=== PATIENT | male | born 1980 | race Caucasian/White ===

== ENCOUNTER 2018-02-05 18:46 | Emergency (ER) | payer OTHER ==
[2018-02-05 18:54] VITALS: BP 144/89
--- NOTE | 2018-02-05 18:56 | ER Report ---
History and Physical Time Seen By MD: 18:55 HPI/ROS CHIEF COMPLAINT: foot pain and swelling HISTORY OF PRESENT ILLNESS: This is a 37 year old male. He has pain in the right foot. No injury or overuse. Started today. Pain is in the anterior dorsal foot, below the ankle. Mild swelling there. More pain with weight bearing. No history of pain like this in the past. No history of gout or other inflammatory conditions. Allergies: Coded Allergies: Penicillins (Verified Allergy, Unknown, 02/05/18) Home Meds Active Scripts Indomethacin (INDOMETHACIN) 25 Mg Capsule, 25 MG PO DIRECTED, #27 CAPSULE 0 Refills Take 2 tablets 3 times a day for 3 days, then decrease to 1 tablet 3 times a day for 3 days, then stop. Take with food. Prov:JOSEPH DIAL MD 02/05/18 Reported Medications Hydrochlorothiazide (HYDROCHLOROTHIAZIDE) 25 Mg Tablet, 1 TAB PO QDAY, TAB 02/05/18 Escitalopram Oxalate (ESCITALOPRAM OXALATE) 10 Mg Tablet, 10 MG PO QDAY, TAB 02/05/18 Atorvastatin Calcium (LIPITOR) 10 Mg Tablet, 5 TAB PO QDAY, TAB 02/05/18 Naproxen Sodium (ALEVE) 220 Mg Tablet, 800 MG PO TID, TAB 02/05/18 Reviewed Nurses Notes: Yes Constitutional Vital Sign - Last 24 Hours 02/05/18 18:54 Temp 98.3 Pulse 83 Resp 19 B/P (MAP) 144/89 Pulse Ox 93 O2 Delivery Room Air Physical Exam General appearance: Patient is alert. No acute distress. Musculoskeletal: Right ankle shows mild swelling dorsal foot. There is no obvious deformity. No bruising. Medial malleolus is non-tender. Lateral malleolus is non-tender. Head of the fifth metatarsal is nontender. Some tenderness with squeeze of the forefoot. No tenderness with squeeze of the lower leg. No pain in calcaneus, arch or Achilles area. Neurologic: The patient has normal sensation. Active range of motion is intact, but with pain. Cardiovascular: Normal dorsalis pedis and posterior tibialis pulses. Normal capillary refill. Skin: No rash. No skin breakdown. DIFFERENTIAL DIAGNOSIS: After history and physical exam differential diagnosis was considered for foot pain including inflammatory condition such as gout, overuse and soft tissue injury. Medical Decision Making Data Points Result Diagram: 02/05/18191402/05/181914 Laboratory Hematology Test 02/05/18 19:15 Red Blood Count 5.52 M/uL (4.00-5.60) Mean Corpuscular Volume 82.3 fL (80.0-96.0) Mean Corpuscular Hemoglobin 28.8 pg (26.0-33.0) Mean Corpuscular Hemoglobin Concent 35.0 g/dL (32.0-36.0) Red Cell Distribution Width 14.3 % (11.5-14.5) Mean Platelet Volume 10.3 fL (7.2-11.1) Neutrophils (%) (Auto) 74.7 % (39.4-72.5) Lymphocytes (%) (Auto) 19.0 % (17.6-49.6) Monocytes (%) (Auto) 5.3 % (4.1-12.4) Eosinophils (%) (Auto) 0.5 % (0.4-6.7) Basophils (%) (Auto) 0.5 % (0.3-1.4) Nucleated RBC Relative Count (auto) 0.1 /100WBC Neutrophils # (Auto) 10.2 K/uL (2.0-7.4) Lymphocytes # (Auto) 2.6 K/uL (1.3-3.6) Monocytes # (Auto) 0.7 K/uL (0.3-1.0) Eosinophils # (Auto) 0.1 K/uL (0.0-0.5) Basophils # (Auto) 0.1 K/uL (0.0-0.1) Nucleated RBC Absolute Count (auto) 0.02 K/uL Erythrocyte Sedimentation Rate 8 mm/HOUR (0-15) Sodium Level 139 mmol/L (137-145) Potassium Level 3.9 mmol/L (3.5-5.0) Chloride Level 102 mmol/L (98-107) Carbon Dioxide Level 21 mmol/L (22-30) Blood Urea Nitrogen 16 mg/dl (9-21) Creatinine 0.90 mg/dl (0.66-1.25) Glomerular Filtration Rate Calc > 60.0 Random Glucose 110 mg/dl (75-110) Uric Acid 7.8 mg/dl (3.5-8.5) Calcium Level 9.3 mg/dl (8.4-10.2) Total Bilirubin 0.5 mg/dl (0.2-1.3) Aspartate Amino Transf (AST/SGOT) 21 U/L (0-35) Alanine Aminotransferase (ALT/SGPT) 24 U/L (0-56) Alkaline Phosphatase 69 U/L (0-126) C-Reactive Protein 1.0 mg/dl (<1.0) Total Protein 7.0 gm/dl (6.3-8.2) Albumin 4.0 g/dl (3.5-5.0) Chemistry Test 02/05/18 19:15 White Blood Count 13.6 k/uL (4.5-11.0) Red Blood Count 5.52 M/uL (4.00-5.60) Hemoglobin 15.9 g/dL (14.0-18.0) Hematocrit 45.5 % (42.0-52.0) Mean Corpuscular Volume 82.3 fL (80.0-96.0) Mean Corpuscular Hemoglobin 28.8 pg (26.0-33.0) Mean Corpuscular Hemoglobin Concent 35.0 g/dL (32.0-36.0) Red Cell Distribution Width 14.3 % (11.5-14.5) Platelet Count 137 K/uL (150-450) Mean Platelet Volume 10.3 fL (7.2-11.1) Neutrophils (%) (Auto) 74.7 % (39.4-72.5) Lymphocytes (%) (Auto) 19.0 % (17.6-49.6) Monocytes (%) (Auto) 5.3 % (4.1-12.4) Eosinophils (%) (Auto) 0.5 % (0.4-6.7) Basophils (%) (Auto) 0.5 % (0.3-1.4) Nucleated RBC Relative Count (auto) 0.1 /100WBC Neutrophils # (Auto) 10.2 K/uL (2.0-7.4) Lymphocytes # (Auto) 2.6 K/uL (1.3-3.6) Monocytes # (Auto) 0.7 K/uL (0.3-1.0) Eosinophils # (Auto) 0.1 K/uL (0.0-0.5) Basophils # (Auto) 0.1 K/uL (0.0-0.1) Nucleated RBC Absolute Count (auto) 0.02 K/uL Erythrocyte Sedimentation Rate 8 mm/HOUR (0-15) Glomerular Filtration Rate Calc > 60.0 Uric Acid 7.8 mg/dl (3.5-8.5) Calcium Level 9.3 mg/dl (8.4-10.2) Total Bilirubin 0.5 mg/dl (0.2-1.3) Aspartate Amino Transf (AST/SGOT) 21 U/L (0-35) Alanine Aminotransferase (ALT/SGPT) 24 U/L (0-56) Alkaline Phosphatase 69 U/L (0-126) C-Reactive Protein 1.0 mg/dl (<1.0) Total Protein 7.0 gm/dl (6.3-8.2) Albumin 4.0 g/dl (3.5-5.0) EKG/Imaging Imaging Examination: FOOT 3 VIEW RIGHT Comparison: None. History: anterior ankle/foot pain Findings: No fracture. Alignment and joint spaces are within normal limits. Tiny plantar calcaneal spur. Soft tissues are unremarkable. IMPRESSION: No right foot fracture or malalignment. Report Dictated By: Ant Brito MD at 02/05/2018 7:53 PM ED Course/Re-evaluation ED Course Labs negative. Imaging with nothing acute. This appears to be inflammatory in nature, but unsure of exact cause. Conservative management with indomethacin as anti-inflammatory and follow-up with orthopedic surgery if not improving. Decision to Disposition Date: Feb 05, 2018 Decision to Disposition Time: 20:06 Depart Departure Latest Vital Signs Vital Signs Date Time Temp Pulse Resp B/P (MAP) Pulse Ox O2 Delivery O2 Flow Rate FiO2 02/05/18 18:54 98.3 83 19 144/89 93 Room Air Impression: Primary Impression: Foot pain, right Condition: Improved Disposition: HOME OR SELF-CARE New Scripts Indomethacin (INDOMETHACIN) 25 Mg Capsule 25 MG PO DIRECTED, #27 CAPSULE 0 Refills Take 2 tablets 3 times a day for 3 days, then decrease to 1 tablet 3 times a day for 3 days, then stop. Take with food. Prov: JOSEPH DIAL MD 02/05/18 Patient Instructions: Gout (ED) Additional Instructions: We are not sure of the exact cause of your foot pain. It appears likely to be an inflammatory condition, but uncertain which. We would like to have you use crutches and slowly increase the amount of weight you are putting on your foot as the pain improves. We would like to have you use the anti-inflammatory Indomethacin. Indomethacin 25mg. Take 2 tablets 3 times a day for 3 days, then decrease to 1 tablet 3 times a day for 3 days, then stop. Take this medicine with food. If not starting to see improvement in the next 2 days, please make an appointment with orthopedic surgery for further evaluation. JOSEPH DIAL MD Feb 05, 2018 18:56
[2018-02-05] MEDS ORDERED: ATOR10TA24 PO (19:09)
[2018-02-05] MEDS ORDERED: HYDR-2966 PO (19:09)
[2018-02-05] MEDS ORDERED: NAPR-1043 PO (19:09)
[2018-02-05] MEDS ORDERED: ESCI10TA8 PO (19:09)
[2018-02-05 19:34] LABS: PLATELET COUNT, AUTOMATED 137 K/uL (150-450)
--- NOTE | 2018-02-05 19:58 | RADIOLOGY IMAGING REPORT ---
FACILITY: [facility] - [place] PATIENT NAME: Keegan Christian : 1980 MR: [id number] V: [id number] EXAM DATE: ORDERING PHYSICIAN: JOSEPH DIAL TECHNOLOGIST: Location: [facility] Patient: Keegan Christian : 1980 Visit/Account:[id number] Date of Sevice: 02/05/2018 Examination: FOOT 3 VIEW RIGHT Comparison: None. History: anterior ankle/foot pain Findings: No fracture. Alignment and joint spaces are within normal limits. Tiny plantar calcaneal sp ur. Soft tissues are unremarkable. IMPRESSION: No right foot fracture or malalignment. Report Dictated By: Ant Brito MD at 02/05/2018 7:53 PM Report E-Signed By: Ant Brito MD at 02/05/2018 7:55 PM WSN:[id number]
[2018-02-05] MEDS ORDERED: INDOMETHACIN 25 MG CAP PO ONE (20:10)
[2018-02-05] MEDS ORDERED: INDO-1 PO (20:10)
== END 2018-02-05 20:22 | disposition home or self-care (01) ==
LOC: ER 19:03
DX: M79.671 Pain in right foot (principal)
CPT/HCPCS: 36415; 82040; 82247; 82310; 82374; 82435; 82565; 82947; 84075; 84132; 84155; 84295; 84450; 84460; 84520; 84550; 85025; 85651; 86140; 99283

== ENCOUNTER 2019-02-14 08:01 | Emergency (ER) | payer OTHER ==
[~2019-02-14 08:01] MED LIST: ATOR10TA24 PO; ESCI10TA8 PO; HYDR-2966 PO; INDO-21 PO; NAPR-1043 PO
--- NOTE | 2019-02-14 08:08 | ER Report ---
History and Physical Time Seen By MD: 08:02 HPI/ROS CHIEF COMPLAINT: Right knee pain HISTORY OF PRESENT ILLNESS: Patient with atraumatic right knee pain. States that at work yesterday he noticed a tenderness to the lateral upper aspect of the knee as if he was struck with something. He however denies trauma. He has painful weightbearing and painful flexion of the knee. No fevers or chills. Patient reports a prior history of multiple knee surgeries to the left knee. REVIEW OF SYSTEMS: Musculoskeletal: Right knee pain Allergies: Coded Allergies: Penicillins (Verified Allergy, Unknown, 02/14/19) Home Meds Active Scripts Oxycodone Hcl/Acetaminophen (PERCOCET 5-325 MG TABLET) 1 Each Tablet, 1 EACH PO Q4H, #20 TAB 0 Refills Prov:SANDY FLOYD MD 02/14/19 Reported Medications Hydrochlorothiazide (HYDROCHLOROTHIAZIDE) 25 Mg Tablet, 1 TAB PO QDAY, TAB 02/05/18 Escitalopram Oxalate (ESCITALOPRAM OXALATE) 10 Mg Tablet, 10 MG PO QDAY, TAB 02/05/18 Atorvastatin Calcium (LIPITOR) 10 Mg Tablet, 5 TAB PO QDAY, TAB 02/05/18 Naproxen Sodium (ALEVE) 220 Mg Tablet, 800 MG PO TID, TAB 02/05/18 Discontinued Scripts Indomethacin (INDOMETHACIN) 25 Mg Capsule, 25 MG PO DIRECTED, #27 CAPSULE 0 Refills Take 2 tablets 3 times a day for 3 days, then decrease to 1 tablet 3 times a day for 3 days, then stop. Take with food. Prov:JOSEPH DIAL MD 02/05/18 Past Medical/Surgical History History of left knee surgeries Hx Substance Use Disorder: No Hx Alcohol Use: No Constitutional Vital Sign - Last 24 Hours 02/14/19 02/14/19 02/14/19 02/14/19 08:05 08:05 08:30 08:31 Temp 98.7 Pulse 93 91 Resp 20 B/P (MAP) 153/103 (120) 153/103 143/79 (100) Pulse Ox 93 O2 Delivery Room Air 02/14/19 02/14/19 09:00 09:01 Pulse 89 B/P (MAP) 134/75 (94) Pulse Ox 92 Physical Exam General appearance: Alert no distress. Right knee: There is no significant swelling. There is no effusion. There is no obvious deformity of the knee. There is moderate tenderness to the the superior pole of the the knee joint proper on the lateral aspect The joint is stable with no comparable ligamentous laxity to the knee. There is no tenderness proximal or distal to the knee. Neurologic exam: The patient has normal sensation distal to the injury. Vascular exam: Normal pulses and capillary refill in the foot [ ] DIFFERENTIAL DIAGNOSIS: After history and physical exam differential diagnosis was considered for knee injury including sprain, fracture, meniscus injury and soft tissue injury. Medical Decision Making ED Course/Re-evaluation ED Course Plan at this time will be oral pain medication and x-ray of the right knee. Decision to Disposition Date: February 14, 2019 Decision to Disposition Time: 08:59 Depart Departure Latest Vital Signs Vital Signs Date Time Temp Pulse Resp B/P (MAP) Pulse Ox O2 Delivery O2 Flow Rate FiO2 02/14/19 09:01 89 92 02/14/19 09:00 134/75 (94) 02/14/19 08:05 98.7 20 Room Air Impression: Primary Impression: Knee strain Condition: Improved Disposition: HOME OR SELF-CARE Referrals: [facility] 1 Week if knee pain persists New Scripts Oxycodone Hcl/Acetaminophen (PERCOCET 5-325 MG TABLET) 1 Each Tablet 1 EACH PO Q4H, #20 TAB 0 Refills Prov: SANDY FLOYD MD 02/14/19 Departure Forms: ER Transition Record, Medications Reconciliation, Off Work/School Form, School or Work Release?: Work Number of days to be released: 2 Patient Portal Information Patient Instructions: Knee Exercises (GEN), Knee Immobilizer (DC), Knee Pain (ED) Problem Qualifiers Primary Impression: Knee strain Encounter type: initial encounter Laterality: right Qualified Codes: S86.911A - Strain of unspecified muscle(s) and tendon(s) at lower leg level, right leg, initial encounter SANDY FLOYD MD February 14, 2019 08:08
[2019-02-14] MEDS ORDERED: oxyCODON/ACET (*)5/325MG (CII) 1 TAB TAB PO ONE (08:25)
[2019-02-14] MEDS ORDERED: OXYC-865 PO (08:29)
--- NOTE | 2019-02-14 08:57 | RADIOLOGY IMAGING REPORT ---
FACILITY: [facility] - [place] PATIENT NAME: Keegan Christian : 1980 MR: [id number] V: [id number] EXAM DATE: ORDERING PHYSICIAN: SANDY FLOYD TECHNOLOGIST: Location: [facility] - [place] Patient: Keegan Christian : 1980 Visit/Account:[id number] Date of Sevice: 02/14/2019 KNEE 3 VIEW RIGHT COMPARISON: None. HISTORY: Right knee pain for one day, no known injury TECHNIQUE: 3 views of the right knee FINDINGS: BONES: No significant arthropathy, fracture, malalignment, or significant osseous lesion. SOFT TISSUES: Negative. No visible soft tissue swelling. EFFUSION: None suggested. OTHER: Negative. IMPRESSION: Unremarkable right knee. No findings to account for pain. Report Dictated By: Aly Coronado at 02/14/2019 8:52 AM Report E-Signed By: Aly Coronado at 02/14/2019 8:52 AM WSN:[id number]
[2019-02-14 09:00] VITALS: BP 134/75
== END 2019-02-14 09:13 | disposition home or self-care (01) ==
LOC: ER 08:09
DX: S86.911A Strain of unspecified muscle(s) and tendon(s) at lower leg level, right leg, initial encounter (principal)
CPT/HCPCS: 73562; 99283; L1830